=== PATIENT | female | born 1955 | race Caucasian/White ===

== ENCOUNTER 2017-02-06 15:59 | Outpatient (CLI) | payer BC ==
--- NOTE | 2017-02-06 17:04 | RAD ---
HISTORY: Low back pain. AP and lateral views of the lumbar spine is obtained. Images demonstrate five nonribbearing lumbar vertebrae. There is old compression fracture involving the superior aspect of the L2 vertebrae. There is an L5-S1 posterior lumbar fusion. Left sided pedicle screws are in place. Screws appear to pass through the L4-5 superior end plate distal aspect overlying the L4-5 intervertebral disc space. Similar finding also seen at the S1 screw. There is disc space height loss and anterior and posteri or osteophytes at the L5 intervertebral disc space. Atherosclerotic calcification of the abdominal aorta seen. IMPRESSION: 1. Old compression fracture at the L1 level. 2. L5-S1 left sided fusion. POS: [facility]
== END 2017-02-06 16:00 | disposition home or self-care (01) ==
LOC: TBSIIMAG 15:59
PROVIDERS: ATTEND Neurological Surgery
DX: M54.16 Radiculopathy, lumbar region (principal); Z98.1 Arthrodesis status
CPT/HCPCS: 72100

== ENCOUNTER 2017-05-28 02:39 | Inpatient (IN) | payer BC ==
[2017-05-28] MEDS ORDERED: Albuterol Sulfate 2.5 mg/3 ml Neb ONE (03:57)
[2017-05-28 04:04] LABS: Band 17 % (5-11); Hemoglobin 13.1 g/dL (12.0-16.0); Lymphocytes 4 % (21-51); MDiff Complete? YES; Mean Corpuscular HGB CONC 32.5 g/dL (32.0-36.0); Mean Corpuscular Hemoglobin 27.5 pg (27.0-31.0); Mean Corpuscular Volume 84.7 fl (81.0-99.0); Mean Platelet Volume 6.7 fL (7.4-10.4); Monocytes 2 % (0-10); Neutrophil 76 % (42-75); PLT Morphology Comment Appears Adequate; Platelet Count 267 thou/uL (130-400); RBC Distribution Width 13.7 % (11.5-14.5); Red Blood Cell (RBC) Count 4.76 mill/uL (4.20-5.40); White Blood Cell (WBC) Count 15.8 thou/uL (4.8-10.8)
[2017-05-28 04:12] LABS: ALT (SGPT) 31 U/L (8-55); AST (SGOT) 21 U/L (5-34); Alkaline Phosphatase 77 U/L (40-150); Anion Gap 13 mmol/L (10-20); BUN (Urea Nitrogen) 10 mg/dL (9.8-20.1); Bilirubin, Total 0.5 mg/dL (0.2-1.2); Calc. Creatinine Clearance 0 mL/min (70-130); Carbon Dioxide 24 mmol/L (23-31); Chloride 106 mmol/L (98-107); Estimated GFR-MDRD 71; Globulin 2.8 g/dL (2.4-3.5); Glucose 176 mg/dL (80-115); Protein, Total 6.8 g/dL (6.0-8.3); Sodium 140 mmol/L (136-145)
[2017-05-28 04:17] LABS: CKMB 0.8 ng/mL (0-6.6); Troponin I Less than 0.010 ng/mL (< 0.028)
[2017-05-28] MEDS ORDERED: HYDROcodone/Acetaminophen 10/325 mg Tablet PO PRN (06:10)
[2017-05-28] MEDS ORDERED: Potassium Chloride 20 MEQ TAB PO SCH (06:30)
[2017-05-28] MEDS ORDERED: Mometasone/Formoterol 120 PUFF INHALER INH SCH (06:30)
[2017-05-28] MEDS ORDERED: Acetaminophen 325 MG TAB PO PRN (06:41)
[2017-05-28] MEDS ORDERED: Ondansetron ODT 4 MG TAB SL PRN (06:41)
[2017-05-28] MEDS ORDERED: Ondansetron HCl/PF 4 MG/2 ML Vial IVP PRN (06:41)
[2017-05-28 07:36] VITALS: BMI 30.5
[2017-05-28] MEDS: Azithromycin 250 MG TAB PO SCH (07:56)
[2017-05-28] MEDS: Ketoconazole 2% Cream 15 gm Tube TOP SCH ×2 (07:57→20:28)
[2017-05-28] MEDS: Enoxaparin Sodium 40 MG/0.4 ML SYRINGE SC SCH (07:57)
[2017-05-28] MEDS: cefTRIAXone\\ROCEPHIN 1 GM in Syringe 10 ML SLOW IVP SCH (07:58)
[2017-05-28] MEDS ORDERED: Vancomycin HCl 1.25 GM in Sodium Chloride 0.9% 250 ML 250 ML IVPB SCH (08:00)
[2017-05-28] MEDS ORDERED: SALMETEROL INH SCH (09:00)
[2017-05-28] MEDS ORDERED: FLUTICASONE INH SCH (09:00)
--- NOTE | 2017-05-28 10:01 | RAD ---
SINGLE VIEW OF THE CHEST: Comparison: 11-21-13 History: COPD exacerbation and elevated lactate. Shortness of breath. FINDINGS: Single view of the chest shows normal sized cardiomediastinal silhouette. There is no evidence of con solidation, mass, or pleural effusion. Increased interstitial markings are seen in the lung bases. IMPRESSION: No acute of acute cardiopulmonary disease. POS: [facility]
--- NOTE | 2017-05-28 11:21 | HP ---
CHIEF COMPLAINT: Cough, dyspnea and fatigue. HISTORY OF PRESENT ILLNESS: A 61-year-old female with a known history of COPD who presents with a ief complaint of cough, dyspnea, and wheezing. [facility] Patient was recently diagnosed with influenza on an outpatient basi s and has completed a course of Tamiflu, Levaquin, and prednisone that was started on 05/08. The pat ient states that she has completed the course. Since completing the course, the patient has felt a s talling of her recovery; patient feels that she was not back to baseline after completing the course of antiviral antibiotic and steroid. In the emergency department, the patient was seen after having been empirically treated with steroids, nebulizers, and empiric antibiotics including ceftriaxone and vancomycin. The patient states she overall feels better. REVIEW OF SYSTEMS: As per HPI and includes the following below. General: No fevers, no chills, no significant weight changes. Gastrointestinal: No nausea, no vomiting, no abdominal pain, no constip ation. Genitourinary: No change in urinary color, frequency, odor or quantity. Cardiovascular: Denies any chest pain or chest pressure, left-sided numbness or tingling. Denies an y diaphoresis. Respiratory: Please see description above. The patient states that her cough is gala gstanding and nonproductive. Neurologic: No new headaches, no new dizziness, no new gait issues. M usculoskeletal: No new myalgias or arthralgias. The remainder of the review of systems otherwise negative. PAST MEDICAL HISTORY: As per above includes the followin. Hypothyroidism. 2. Hypertension. 3. Chronic obstructive pulmonary disease. 4. Status post appendectomy. 5. Status post cholecystectomy. 6. Status post tonsillectomy. 7. Status post hysterectomy. 8. Status post right upper lobectomy. 9. Status post knee, bunionectomy. 10. Status post orthopedic surgeries to the left elbow and to the back. FAMILY HISTORY: The patient's mother had known history of both cardiovascular disease and pulmonary disease. SOCIAL HISTORY: The patient occasionally drinks. Has not had a drink in the last week. 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 Denies any illicit drug use. Endorses wishing to be fu code at this point in time. PHYSICAL EXAMINATION: VITAL SIGNS: Most recent documented vital signs, pulse 103, respirations 20, blood pressure 153/82, temperature 98.8, satting 94% on room air. LABORATORY DATA AND IMAGING: WBC 15.8, hemoglobin 13.1, hematocrit 40.3, platelets 267. Sodium 140, potassium 3.0, chloride 106, bicarbonate 24, BUN 10, creatinine 0.82, glucose 176, calcium 9.0, tota l bilirubin 0.5, AST 21, ALT 31, alkaline phosphatase 77. Troponin negative. ASSESSMENT AND PLAN: This is a 61-year-old female with a known history of chronic obstructive pulmon jamil disease who presents with a chief complaint of shortness of breath, dyspnea, and wheezing. 1. Suspected chronic obstructive pulmonary disease exacerbation with leukocytosis and respiratory sy mptoms. Initiated empiric antibiotics with ceftriaxone, vancomycin and azithromycin. The patient is being placed on methylprednisolone with sliding scale insulin if needed for medication induced hyper glycemia. The patient was placed on DuoNeb and p.r.n. A request for consultation has been phillip adriano with the patient's outpatient director of health education, Dr. Ramires. 2. Leukocytosis, likely related to the patient's chronic obstructive pulmonary disease exacerbation. Check UA. The patient is ruled out for PE and flu. 3. Hypokalemia. Potassium 3.0. It appears that the patient has had this in the past. Replete with 40 mEq now. Recheck and replete as needed. 4. Systemic inflammatory response syndrome. Please see discussion above. Due to tachycardia and le ukocytosis. 5. History of hypothyroidism. We will check the patient's TSH and confirm her home doses and resume her home thyroid replacement therapy. 6. Diet: Regular. 7. Activity: As tolerated. 8. Deep venous thrombosis prophylaxis with enoxaparin. 9. Admit the patient, FULL CODE. Thank you for asking me to care for your patient.
[2017-05-28 11:33] LABS: Bilirubin Negative (Negative); Blood, Urine Negative (Negative); Clarity CLEAR (Clear); Glucose, Urine (Dipstick) >=1000 mg/dL (Negative); Leukocyte Negative (Negative); Nitrite Negative (Negative); Protein, Urine (Dipstick) Negative (Neg-Trace); Specific Gravity, Urine 1.025 (1.002-1.036); Urobilinogen 0.2 mg/dL (0.2-1.0)
[2017-05-28] MEDS ORDERED: Furosemide 20 MG TAB PO SCH (17:30)
--- NOTE | 2017-05-28 17:49 | CON ---
DATE OF SERVICE: 05/28/2017 SERVICE: Pulmonary Medicine. REASON FOR CONSULTATION: COPD exacerbation. HISTORY OF PRESENT ILLNESS: The patient is a 61-year-old white female with past medical history significant for a benign pulmonary nodule, for which she underwent a right upper lobectomy for. This was subsequently complicated by empyema x2, requiring decortication, multiple. Ultimately, she cleared the infection. She really did not have a lot of respiratory issues prior to that. Ever since, she has been on some Symbicort that she has been taking on a routine basis. She has very few COPD exacerbations based on what she is telling me. Either way, 2 days after [place], she was exposed to her grandson who was sick and had a febrile illness. Couple of days later, she started developing cough, congestion, and sputum production. All of the infectious symptoms went away after about a week ago, but she continues to have a persistent cough with sputum production. 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 Her co-worker suggested that she needed to be evaluated. Ultimately , she admitted to the hospital. She is not currently requiring any oxygen. She denies any current fevers, chills, nausea or vomiting. She had no diarrhea. She has no hot, red, swollen joints, arthralgias, or new rashes. She has a cough and a little dyspnea that limits her activity when she moves around. Outside of this, she is in her usual state of health. PAST MEDICAL HISTORY: 1. COPD. 2. Hypothyroidism. 3. Hypertension. PAST SURGICAL HISTORY: 1. Appendectomy. 2. Cholecystectomy. 3. Tonsillectomy. 4. Hysterectomy. 5. Right upper lobectomy for benign lesion. 6. Bunionectomy. 7. Left elbow surgery. 8. Back surgery. FAMILY HISTORY: Noncontributory. SOCIAL HISTORY: She drinks alcohol rarely. She denies any current tobacco or illicit drug use. She quit smoking in 2004, but prior to that had a 30-pack- year history of smoking. She denies any current exposure to chemicals, dust, asbestos, or tuberculosis. ALLERGIES: PENICILLIN G. MEDICATIONS: List of her inpatient medications were reviewed. No specific updates were made at this time. REVIEW OF SYSTEMS: General, head, ears, eyes, nose, throat, cardiovascular, respiratory, GI, , musculoskeletal, neurologic and skin is negative except as mentioned in the HPI. PHYSICAL EXAMINATION: VITAL SIGNS: Afebrile, pulse 91, blood pressure 121/78, respirations 16, saturation 99% on room air. GENERAL: The patient is awake and alert, in no apparent distress. LUNGS: Excellent air entry. There is slightly prolonged expiratory phase is present. There is no wheezing appreciated. Rhonchi are present but clear with cough. No crackles. HEART: Normal rate, regular. ABDOMEN: Soft, nontender, nondistended. Bowel sounds are positive. MUSCULOSKELETAL: No cyanosis or clubbing. No pitting in the bilateral lower extremities. NEUROLOGIC: Grossly nonfocal. LABORATORY DATA: WBC 15.8. Band count is elevated at 17%. Basic metabolic profile was unremarkable except for potassium of 3.0. Liver function studies are unremarkable. CK-MB and troponin fall within the normal limits. TSH is a little bit low suggesting that her thyroid is slightly over replaced. Urinalysis is unremarkable. IMAGING: Chest x-ray demonstrates no acute cardiopulmonary abnormality. There is some volume loss in the right lung with the right-sided hemidiaphragm that is elevated relative to the left. Outside of this, there is no acute cardiopulmonary abnormality. ASSESSMENT: 1. Acute bronchitis. 2. Sepsis without end organ damage. 3. Hyperthyroidism, iatrogenic. 4. Chronic obstructive pulmonary disease with acute exacerbation, possible. PLAN: The patient seems to be a little over replaced on her thyroid. I will back off on her medication to 100 mcg on a daily basis. She will need a repeat TSH in the outpatient setting in roughly 6 weeks and further adjustments will need to be performed if necessary. Magnesium and phosphorus will be checked tomorrow morning. Agree with potassium, we will give an additional dose. I will deescalate her steroids, and decrease her antibiotics just to a monotherapy with the fluoroquinolone. Pulmonary Critical Care will continue to follow while the patient remains in-house, but Dr. Ramires will resume coverage in the morning. 70 minutes have been devoted to this patient in various activities. I personally reviewed all imaging studies and laboratory data noted within this document. For at least half of this time, I was interacting with the patient at the bedside or coordinating care with the care team. For the remainder of the time I was immediately available to the patient in the hospital unit. VITOR
[2017-05-29 05:06] LABS: #Lymphocytes 0.9 thou/uL (1.20-3.40); #Monocytes 0.7 thou/uL (0.11-0.59); #Neutrophils 13.7 thou/uL (1.40-6.50); %Basophils 0.1 % (0.0-1.0); %Eosinophils 0.1 % (0.0-10.0); %Lymphocytes 5.7 % (21.0-51.0); %Monocytes 4.4 % (0.0-10.0); %Neutrophils 89.7 % (42.0-75.0); Hemoglobin 11.9 g/dL (12.0-16.0); Mean Corpuscular HGB CONC 32.6 g/dL (32.0-36.0); Mean Corpuscular Volume 85.7 fl (81.0-99.0); Mean Platelet Volume 7.5 fL (7.4-10.4); Platelet Count 246 thou/uL (130-400); RBC Distribution Width 13.9 % (11.5-14.5); Red Blood Cell (RBC) Count 4.27 mill/uL (4.20-5.40); White Blood Cell (WBC) Count 15.2 thou/uL (4.8-10.8)
[2017-05-29 05:22] LABS: Anion Gap 14 mmol/L (10-20); BUN (Urea Nitrogen) 12 mg/dL (9.8-20.1); Calc. Creatinine Clearance 114 mL/min (70-130); Calcium 9.1 mg/dL (7.8-10.44); Carbon Dioxide 24 mmol/L (23-31); Chloride 107 mmol/L (98-107); Estimated GFR-MDRD Greater than 90; Glucose 127 mg/dL (80-115); Magnesium 2.1 mg/dL (1.6-2.6); Phosphorus 3.3 mg/dL (2.3-4.7); Potassium 3.6 mmol/L (3.5-5.1); Sodium 141 mmol/L (136-145)
[2017-05-29] MEDS ORDERED: Levothyroxine Sodium 100 MCG TAB PO SCH (06:00)
[2017-05-29] MEDS ORDERED: predniSONE 20 MG TAB PO SCH (08:00)
[2017-05-29] MEDS: Azithromycin 250 MG TAB PO SCH (08:12)
[2017-05-29] MEDS: cefTRIAXone\\ROCEPHIN 1 GM in Syringe 10 ML SLOW IVP SCH ×2 (08:12→12:45)
[2017-05-29] MEDS: Enoxaparin Sodium 40 MG/0.4 ML SYRINGE SC SCH (08:15)
[2017-05-29] MEDS: Ketoconazole 2% Cream 15 gm Tube TOP SCH (08:20)
--- NOTE | 2017-05-29 09:11 | PRG ---
DATE OF SERVICE: 05/29/2017 The patient is doing better, had no acute complaints. PHYSICAL EXAMINATION: VITAL SIGNS: Temperature 97.9, pulse 107, respirations 16, O2 sat 93%. HEENT: Unremarkable. NECK: No JVD. CHEST: Clear without wheezing. CARDIAC: S1 and S2 regular. ABDOMEN: Soft. EXTREMITIES: No edema. LABORATORY DATA: White blood cell count 15.2, hematocrit 36.6, platelet count 246. Sodium 141, pota ssium 3.6, BUN 12, creatinine 0.6, glucose 127. Chest x-ray from yesterday demonstrated no acute infiltrates. ASSESSMENT: 1. Chronic obstructive pulmonary disease with exacerbation/bronchitis. 2. Sepsis, which is improved. PLAN: From my standpoint, she is back to her baseline. I think she could be discharged on Omnicef a nd Zithromax for another 7 days, taper her steroids over a couple of weeks and follow her in the offi ce in 3-4 weeks.
[2017-05-29 11:38] VITALS: BP 136/80; TEMP 98
--- NOTE | 2017-05-29 19:23 | DIS ---
DATE OF ADMISSION: 05/28/2017 DATE OF DISCHARGE: 05/29/2017 DISCHARGE DIAGNOSES: 1. Acute chronic obstructive pulmonary disease exacerbation. 2. Leukocytosis secondarily to #1. 3. Hypokalemia, resolved. 4. Systemic inflammatory response syndrome. 5. Hypothyroidism, stable. CONSULTATIONS: Dr. Munoz and Dr. Ramires with Pulmonology Service. PERTINENT LABORATORY AND X-RAY FINDINGS: Potassium ranged between 3.0 to 3.6. LFTs within normal li mits. TSH 0.17. CBC showed a white blood cell count ranging between 15.2-15.8. Portable chest x-ra y dated 05/28/2016 showed no acute cardiopulmonary process. HOSPITAL COURSE: Patient was admitted to the medical floor after initially presenting with cough, dy spnea, and fatigue. The patient with a known history of chronic obstructive pulmonary disease presen ting with acute exacerbation of COPD. The patient was recently diagnosed with influenza completing a course of Tamiflu, Levaquin, and prednisone. The patient presented with increased respiratory distr ess, treated with empiric antibiotic therapy with Rocephin and vancomycin; however, chest imaging was unrevealing as to an acute infiltrate. The patient received IV Solu-Medrol and IV antibiotic therap y, rapidly clinically improving in less than 24 hours. Patient with evidence of systemic inflammator y response syndrome, resolving with general supportive measures. The patient obtained baseline funct ional status by the time of discharge and ready for discharge on 05/29/2017. DISCHARGE MEDICATIONS: 1. Zithromax 500 mg 1 tab p.o. daily x5 days. 2. Prednisone 20 mg 2 tabs p.o. daily x 3 days, followed by 1 tab p.o. daily x 3 days, followed by h correction a tab p.o. daily x3 days. 3. ProAir HFA two puffs inhaled q.6 hours p.r.n. 4. Enteric coated aspirin 81 mg 1 tab p.o. daily. 5. Calcium carbonate 600 mg 1 tab p.o. daily. 6. Clobetasol propionate 0.05% cream applied to affected area daily. 7. Advair Diskus 1 puff inhaled b.i.d. 8. Ketoconazole 2% 1 application topically b.i.d. 9. Levothyroxine 125 mcg 1 tab p.o. daily. 10. Lisinopril/hydrochlorothiazide 20/25 mg 1 tab p.o. daily. 11. Multivitamin 1 tab p.o. daily. 12. [place] 3 fatty acids 1 capsule p.o. daily. 13. Protonix 40 mg 1 tab p.o. daily. 14. Potassium chloride 40 mEq p.o. daily. 15. Spiriva 18 mcg inhaled daily. FOLLOWUP: The patient will follow up with her primary care provider, Dr. Michelle Dumont within 7 days of discharge. CONDITION ON DISCHARGE: Stable. ACTIVITY: ad dale. DIET: Heart healthy. CODE STATUS: FULL. DISPOSITION: Home, 05/29/2017.
--- NOTE | 2017-06-03 21:38 | PQF ---
LIUDMILA PATTERSON Chai Shing MD [id number] CLINICAL DOCUMENTATION CLARIFICATION FORM: POST DISCHARGE Addendum to original discharge summary date: ____ Late entry note date: __ DATE: 06/03/2017 ATTN: Caesar Guerrero MD Please exercise your independent, professional judgment in responding to the clarification form. Clinical indicators are provided on the bottom of this form for your review Discharge Summary Discharge Diagonses #4. Systemic Inflammatory resposnce syndrome Consultation Assessment #2 Sepsis without end organ damage Please check appropriate box(s): [ x ] Sepsis due to: (Pna, UTI, gangrenous gall bladder, etc.) ___pna, uti, gangrenous gallbladder, ruptured appendix Due to: [ ] Device (please specify) [ ] Implant [ ] Graft [ ] Infusion [ ] SIRS due to non-infectious process (please specify etiology) [ ] with organ dysfunction [ ] without organ dysfunction [ ] Severe sepsis with acute organ dysfunction of: (Examples: respiratory failure, encephalopathy, acute kidney failure, other) [ ] Localized infection without sepsis [ ] Other diagnosis [ ] Unable to determine In addition, please specify: Present on Admission (POA): [ x ] Yes [ ] No [ ] Unable to determine For continuity of documentation, please document condition throughout progress notes and discharge summary. Thank You. CLINICAL INDICATORS - SIGNS / SYMPTOMS / LABS Altered mental status Fever or hypothermia (<96.8 F/36 C or > 100.4 F/38C) Respiratory rate >22/min, Hypoxemia, SBP <100mmHg Metabolic acidosis Lactic Acid >2mmol/L, Increase BUN/Experience Design Director, decrease GFR, coag abnormalities, thrombocytopenia-plts <100k Oliguria Shock-hypotension resistant to IV fluid boluses WBC count (>12,000/mm^4 or <4000/mm^3 or 10% neuts, 10% bands) Hyperglycemia in absence of diabetes mellitus Positive blood cultures RISK FACTORS Infection/Bacteremia Pneumonia, UTI, infected wound, gangrenous gall bladder Diabetes or Cancer Surgery / surgical instrumentation / trauma Ruptured/perforated bowel, ruptured appendix Immunosuppression Advancing Age TREATMENTS: Initiation Sepsis Protocol ICU Daily CBC Blood/sputum/wound cultures ID Consult IV antibiotics - broad spectrum IV Fluids Vasopressors, meds (This form is maintained as a part of the permanent medical record) 2014 [employer] All Rights Reserved [email or web address] [phone] VITOR
--- NOTE | 2017-06-07 17:49 | EKG ---
Test Reason : Blood Pressure : / mmHG Vent. Rate : 099 BPM Atrial Rate : 099 BPM P-R Int : 142 ms QRS Dur : 080 ms QT Int : 358 ms P-R-T Axes : 012 -16 044 degrees QTc Int : 459 ms Normal sinus rhythm Anteroseptal infarct , age undetermined Abnormal ECG Confirmed by APOORVA REYES D.O. ([id number]), editor publications ELIO STONE ([id number]) on 06/07/2017 5:48:10 PM Referred By: Confirmed By:APOORVA REYES D.O.
== END 2017-05-29 15:08 | disposition home or self-care (01) | DRG 192 ==
LOC: ERS 02:39 → T4-B 04:30
PROVIDERS: ADMIT Internal Medicine; ATTEND Internal Medicine
DX: J44.1 Chronic obstructive pulmonary disease with (acute) exacerbation (principal); E03.2 Hypothyroidism due to medicaments and other exogenous substances; E03.9 Hypothyroidism, unspecified; E87.6 Hypokalemia; I10 Essential (primary) hypertension; Z90.2 Acquired absence of lung [part of]; Z88.0 Allergy status to penicillin; Z82.49 Family history of ischemic heart disease and other diseases of the circulatory system; Z84.89 Family history of other specified conditions; Z83.6 Family history of other diseases of the respiratory system
CPT/HCPCS: 36415; 71045; 80048; 80053; 81003; 82553; 83735; 84100; 84443; 84484; 85025; 93005; 94640; J0696; J1650; J2920; J3370; J7050; J7506; J7611; J7620

== ENCOUNTER 2018-03-10 10:21 | Outpatient (CLI) | payer BC | END 2018-03-10 10:22 | disposition home or self-care (01) | LOC: BICMAMMO 10:21 | PROVIDERS: ATTEND Family Medicine | DX: Z12.31 Encounter for screening mammogram for malignant neoplasm of breast (principal) | CPT/HCPCS: 77063; 77067 ==

== ENCOUNTER 2018-11-11 09:43 | Outpatient (CLI) | payer BC ==
--- NOTE | 2018-11-11 10:25 | RAD ---
2 VIEW CHEST: Date: 11/11/18 HISTORY: Dyspnea. COMPARISON: Portable film dated 05/28/17. FINDINGS: Elevated right hemidiaphragm is stable. Lungs appear clear of infiltrate. Heart size upper normal and stable. Vasculature is within normal range. IMPRESSION: No acute findings. POS: [facility]
== END 2018-11-11 09:44 | disposition home or self-care (01) ==
LOC: RAD 09:43
PROVIDERS: ATTEND Internal Medicine
DX: R06.00 Dyspnea, unspecified (principal)
CPT/HCPCS: 71046

== ENCOUNTER 2019-03-11 11:18 | Outpatient (CLI) | payer BC ==
--- NOTE | 2019-03-11 13:02 | MMO ---
Bilateral MAMMO Bilat Screen [facility]. CLINICAL HISTORY: Patient is 63 years old and is seen for screening. The patient has no family history of breast cancer. The patient has no personal history of cancer. The patient has a history of left Lumpectomy in 2013 - benign. VIEWS: The views performed were: bilateral craniocaudal with tomosynthesis and bilateral mediolateral oblique with tomosynthesis. FILMS COMPARED: The present examination has been compared to prior imaging studies performed at [facility] on 03/14/2014, 03/27/2015, 04/10/2016 and 03/10/2018. This study has been interpreted with the assistance of computer-aided detection. MAMMOGRAM FINDINGS: There are scattered fibroglandular densities. There are no suspicious masses, suspicious calcifications, or new areas of architectural distortion. IMPRESSION: THERE IS NO MAMMOGRAPHIC EVIDENCE OF MALIGNANCY. A ROUTINE FOLLOW-UP MAMMOGRAM IN 1 YEAR IS RECOMMENDED. THE RESULTS OF THIS EXAM WERE SENT TO THE PATIENT. ACR BI-RADS Category 1 - Negative MAMMOGRAPHY NOTE: 1. A negative mammogram report should not delay a biopsy if a dominant of clinically suspicious mass is present. 2. Approximately 10% to 15% of breast cancers are not detected by mammography. 3. Adenosis and dense breasts may obscure an underlying neoplasm. Reported by: ANGEL LOW MD Electonically Signed: [id number]
== END 2019-03-11 11:19 | disposition home or self-care (01) ==
LOC: BICMAMMO 11:18
PROVIDERS: ATTEND Family Medicine
DX: Z12.31 Encounter for screening mammogram for malignant neoplasm of breast (principal); Z98.890 Other specified postprocedural states
CPT/HCPCS: 77063; 77067

== ENCOUNTER 2020-03-13 10:45 | Outpatient (CLI) | payer BC ==
--- NOTE | 2020-03-13 11:05 | MMO ---
Bilateral MAMMO Bilat Screen [facility]. CLINICAL HISTORY: Patient is 64 years old and is seen for screening. The patient has no family history of breast cancer. The patient has no personal history of cancer. The patient has a history of left Lumpectomy in 2013 - benign. VIEWS: The views performed were: bilateral craniocaudal with tomosynthesis and bilateral mediolateral oblique with tomosynthesis. FILMS COMPARED: The present examination has been compared to prior imaging studies performed at [facility] on 03/27/2015, 04/10/2016, 03/10/2018 and 03/11/2019. This study has been interpreted with the assistance of computer-aided detection. MAMMOGRAM FINDINGS: There are scattered fibroglandular densities. There are no suspicious masses, suspicious calcifications, or new areas of architectural distortion. IMPRESSION: THERE IS NO MAMMOGRAPHIC EVIDENCE OF MALIGNANCY. A ROUTINE FOLLOW-UP MAMMOGRAM IN 1 YEAR IS RECOMMENDED. THE RESULTS OF THIS EXAM WERE SENT TO THE PATIENT. ACR BI-RADS Category 1 - Negative MAMMOGRAPHY NOTE: 1. A negative mammogram report should not delay a biopsy if a dominant of clinically suspicious mass is present. 2. Approximately 10% to 15% of breast cancers are not detected by mammography. 3. Adenosis and dense breasts may obscure an underlying neoplasm. Reported by: ANGEL LOW MD Electonically Signed: [id number]
== END 2020-03-13 10:46 | disposition home or self-care (01) ==
LOC: BICMAMMO 10:45
PROVIDERS: ATTEND Family Medicine
DX: Z12.31 Encounter for screening mammogram for malignant neoplasm of breast (principal); Z98.890 Other specified postprocedural states
CPT/HCPCS: 77063; 77067

== ENCOUNTER 2021-04-30 10:04 | Outpatient (CLI) | payer MEDICARE | END 2021-04-30 10:05 | disposition home or self-care (01) | LOC: BICULT 10:04 | PROVIDERS: ATTEND Family Medicine | DX: E03.9 Hypothyroidism, unspecified (principal); E04.2 Nontoxic multinodular goiter | CPT/HCPCS: 76536 ==

== ENCOUNTER 2021-05-15 12:18 | Day surgery (SDC) | payer MEDICARE ==
[2021-05-10 11:33] VITALS: BMI 30.5
[2021-05-15] MEDS ORDERED: Sodium Bicarbonate 2.5 MEQ/5 ML VIAL ONE (12:32)
[2021-05-15] MEDS ORDERED: Lidocaine 1% PF 5 ML VIAL ONE (12:33)
[2021-05-15 13:57] VITALS: BP 141/66; TEMP 98
== END 2021-05-15 13:30 | disposition home or self-care (01) ==
LOC: ULT 12:18
PROVIDERS: ATTEND Family Medicine
DX: E04.1 Nontoxic single thyroid nodule (principal); Z53.8 Procedure and treatment not carried out for other reasons; Z88.0 Allergy status to penicillin
CPT/HCPCS: 76536

== ENCOUNTER 2021-05-22 12:45 | Outpatient (CLI) | payer MEDICARE | END 2021-05-22 12:46 | disposition home or self-care (01) | LOC: BICMAMMO 12:45 | PROVIDERS: ATTEND Family Medicine | DX: Z12.31 Encounter for screening mammogram for malignant neoplasm of breast (principal); Z91.89 Other specified personal risk factors, not elsewhere classified | CPT/HCPCS: 77063; 77067 ==

== ENCOUNTER 2021-10-22 13:02 | Outpatient (CLI) | payer MEDICARE | END 2021-10-22 13:03 | disposition home or self-care (01) | LOC: TBSIIMAG 13:02 | PROVIDERS: ATTEND Neurological Surgery | DX: M47.12 Other spondylosis with myelopathy, cervical region (principal); M47.26 Other spondylosis with radiculopathy, lumbar region; M51.16 Intervertebral disc disorders with radiculopathy, lumbar region; M48.56XA Collapsed vertebra, not elsewhere classified, lumbar region, initial encounter for fracture; M48.02 Spinal stenosis, cervical region; R93.5 Abnormal findings on diagnostic imaging of other abdominal regions, including retroperitoneum; Z98.890 Other specified postprocedural states | CPT/HCPCS: 72110; 72141; 72148 ==

== ENCOUNTER 2022-02-22 11:58 | Outpatient (CLI) | payer MEDICARE | END 2022-02-22 11:59 | disposition home or self-care (01) | LOC: BICRAD 11:58 | PROVIDERS: ATTEND Family Medicine | DX: M25.552 Pain in left hip (principal); M16.12 Unilateral primary osteoarthritis, left hip | CPT/HCPCS: 72100 ==

== ENCOUNTER 2022-04-01 13:57 | Outpatient (CLI) | payer MEDICARE | END 2022-04-01 13:58 | disposition home or self-care (01) | LOC: BICCT 13:57 | PROVIDERS: ATTEND Nurse Practitioner Family | DX: M54.16 Radiculopathy, lumbar region (principal) | CPT/HCPCS: 72131 ==

== ENCOUNTER 2022-08-20 10:50 | Outpatient (CLI) | payer MEDICARE | END 2022-08-20 10:51 | disposition home or self-care (01) | LOC: BICULT 10:50 | PROVIDERS: ATTEND Nurse Practitioner Family | DX: Z12.31 Encounter for screening mammogram for malignant neoplasm of breast (principal); E04.1 Nontoxic single thyroid nodule; E04.2 Nontoxic multinodular goiter | CPT/HCPCS: 76536; 77063; 77067 ==

== ENCOUNTER 2023-03-24 12:42 | Outpatient (CLI) | payer MEDICARE ==
[2023-03-24 14:29] LABS: Mean Corpuscular HGB CONC 33.3 g/dL (32.0-36.0); Mean Corpuscular Hemoglobin 28.8 pg (27.0-33.0); Mean Corpuscular Volume 86.4 fl (81.6-98.3); Mean Platelet Volume 10.6 fl (7.4-10.4); Platelet Count 308 10x3/uL (150-450); RBC Distribution Width 13.2 % (11.5-14.5); Red Blood Cell (RBC) Count 4.86 10x6/uL (3.90-5.03)
[2023-03-24 14:36] LABS: Anion Gap 15 mmol/L (10-20); BUN (Urea Nitrogen) 12 mg/dL (9.8-20.1); Calc. Creatinine Clearance 0 mL/min (70-130); Calcium 9.6 mg/dL (7.8-10.44); Carbon Dioxide 24 mmol/L (23-31); Chloride 105 mmol/L (98-107); Estimated GFR 89; Glucose 105 mg/dL (80-115); Potassium 4.1 mmol/L (3.5-5.1); Sodium 140 mmol/L (136-145)
== END 2023-03-24 12:43 | disposition home or self-care (01) ==
LOC: LABBT 12:42
PROVIDERS: ATTEND Neurological Surgery
DX: Z01.818 Encounter for other preprocedural examination (principal); M54.16 Radiculopathy, lumbar region
CPT/HCPCS: 80048; 85027; 93005; 93010

== ENCOUNTER 2023-03-24 13:00 | Inpatient (IN) | payer MEDICARE ==
[2023-03-24 13:14] VITALS: BMI 31.7
[2023-03-31] MEDS ORDERED: LevoFLOXacin 500 mg/D5W 100 ML BAG ONE (06:17)
[2023-03-31] MEDS ORDERED: Vancomycin 1 GM VIAL ONE (06:34)
[2023-03-31] MEDS ORDERED: PROPOFOL 20 ML ONE (06:53)
[2023-03-31] MEDS ORDERED: Fentanyl 250 MCG/5 ML VIAL ONE (06:53)
[2023-03-31] MEDS ORDERED: Ondansetron PF 4 MG/2 ML Vial ONE ×2 (06:54→07:27)
[2023-03-31] MEDS ORDERED: Lidocaine 1% PF 5 ML VIAL ONE ×2 (06:54→07:27)
[2023-03-31] MEDS ORDERED: Rocuronium Bromide 10 MG/ML (10ML VIAL) ONE ×2 (06:54→07:27)
[2023-03-31] MEDS ORDERED: Midazolam HCl 2 mg/2 ml Vial ONE (07:17)
[2023-03-31] MEDS ORDERED: Dexamethasone 4 mg/ml Vial ONE (07:19)
[2023-03-31] MEDS ORDERED: PROPOFOL 200 MG/20 ML VIAL ONE (07:27)
[2023-03-31] MEDS ORDERED: Dexamethasone 20 MG/5 ML VIAL ONE (07:27)
[2023-03-31] MEDS ORDERED: Ketorolac Tromethamine 30 MG/ML VIAL ONE ×2 (07:27→07:53)
[2023-03-31] MEDS ORDERED: Albuterol HFA (OR) 200 PUFF INH ONE (07:27)
[2023-03-31] MEDS ORDERED: Clindamycin/D5W 900 mg/50 ml Premix Bag ONE (07:45)
[2023-03-31] MEDS ORDERED: Dexmedetomidine 200 MCG/2 ML VIAL ONE (07:56)
[2023-03-31] MEDS ORDERED: Promethazine HCl 25 MG/ML VIAL IM PRN (08:15)
[2023-03-31] MEDS ORDERED: PACU-Morphine 4MG/ML VIAL SLOW IVP PRN (08:15)
[2023-03-31] MEDS ORDERED: Morphine Sulfate 2 MG/ML SYRINGE SLOW IVP PRN (08:15)
[2023-03-31] MEDS ORDERED: HYDROmorphone 2 MG/ML VIAL SLOW IVP PRN (08:15)
[2023-03-31] MEDS ORDERED: Ondansetron HCl/PF 4 MG/2 ML Vial IVP PRN (08:15)
[2023-03-31] MEDS ORDERED: SUGAMMADEX SODIUM 200 MG/2 ML VIAL ONE (08:19)
[2023-03-31] MEDS ORDERED: HYDROmorphone 0.5 MG/0.5 ML SYRINGE ONE ×2 (09:03→09:20)
[2023-03-31] MEDS ORDERED: fentaNYL 50 mcg/mL 1 mL Vial ONE (09:46)
[2023-03-31] MEDS ORDERED: HYDROcodone/Acetaminophen 5/325 mg Tablet ONE (10:33)
== END 2023-03-31 14:10 | disposition home or self-care (01) | DRG 460 ==
LOC: SURG A 03-31 05:53 → EDSTATUS 03-31 13:00
PROVIDERS: ADMIT Neurological Surgery; ATTEND Neurological Surgery
PROC: 0SP304Z Removal of Internal Fixation Device from Lumbosacral Joint, Open Approach (ICD-10-PCS; principal; 2023-03-31)
PROC: 0SG30K1 Fusion of Lumbosacral Joint with Nonautologous Tissue Substitute, Posterior Approach, Posterior Column, Open Approach (ICD-10-PCS; 2023-03-31)
PROC: 01NB0ZZ Release Lumbar Nerve, Open Approach (ICD-10-PCS; 2023-03-31)
PROC: 01NR0ZZ Release Sacral Nerve, Open Approach (ICD-10-PCS; 2023-03-31)
DX: M47.27 Other spondylosis with radiculopathy, lumbosacral region (principal); Z88.0 Allergy status to penicillin
CPT/HCPCS: C1713; C1889; J1100; J1170; J1885; J1956; J2250; J2405; J2704; J3010; J3370; J3490

== ENCOUNTER 2023-11-04 14:06 | Outpatient (CLI) | payer MEDICARE | END 2023-11-04 14:07 | disposition home or self-care (01) | LOC: ULT 14:06 | PROVIDERS: ATTEND Nurse Practitioner Family | DX: E04.2 Nontoxic multinodular goiter (principal) | CPT/HCPCS: 76536 ==